=== PATIENT | female | born 1950 | race African-American/Black ===

== ENCOUNTER 2022-09-07 13:36 | Inpatient (IN) | payer OTHER, MEDICAID ==
[~2022-09-07] VITALS: Ht 167.6 cm; Wt 108.2 kg
[2022-09-07 14:20] LABS: Basophils # (auto) 0.1 10 ^3/uL (0-0.2); Basophils % (auto) 0.7 % (0.0-2.0); Eosinophils # (auto) 0 10 ^3/uL (0-0.8); Hematocrit 43.6 % (36.0-46.0); Lymphocytes # (auto) 1.5 10 ^3/uL (0.4-5.4); Lymphocytes % (auto) 20.1 % (10.0-50.0); Mean Corpuscular Hemoglobin 29.1 pg (28.0-32.0); Mean Corpuscular Hgb Conc. 34.4 g/dL (32.0-36.0); Mean Corpuscular Volume 84.5 fL (80.0-100.0); Monocytes # (auto) 0.2 10 ^3/uL (0-1.3); Monocytes % (auto) 2.9 % (0.0-12.0); Neutrophils # (auto) 5.8 10 ^3/uL (1.6-8.6); Neutrophils % (auto) 76.3 % (37.0-80.0); Nucleated Red Blood Cells % 0.3 %; Red Blood Cells 5.16 10^6/uL (4.0-5.20); Red Cell Distribution Width 16.4 % (11.8-14.3); White Blood Cell 7.7 10^3/uL (4.4-10.8)
[2022-09-07 14:36] LABS: Albumin 3.7 g/dL (3.4-5.0); Magnesium 2.4 mg/dL (1.6-2.6); Potassium 3.8 mmol/L (3.5-5.1)
[2022-09-07 14:41] LABS: BUN/Creatinine Ratio 19.3 (10.0-20.0); Bilirubin, Total 1.2 mg/dL (0.2-1.0); INR 1.06 (0.9-1.15); Partial Thromboplastin Time 28.8 sec (24.6-33.4); Total Protein 8.2 g/dL (6.4-8.2)
[2022-09-07 15:22] LABS: Lactic Acid w/Reflex 2.7 mmol/L (0.4-2.0)
[2022-09-07] MEDS ORDERED: PIPERACILLIN-TAZOB 3.375GM 100 ML IV ONE (16:30)
[2022-09-07] MEDS ORDERED: SODIUM CHLORIDE 0.9% 1,000 ML IV ONE (17:15)
[2022-09-07] MEDS ORDERED: ASPirin 325 MG TAB PO ONE (17:15)
[2022-09-07] MEDS ORDERED: DEXTROSE (50%) 50ML SYRG IV PRN (17:15)
[2022-09-07 17:29] LABS: Cholesterol 123 mg/dL (< 200); Triglycerides 64 mg/dL (< 150)
[2022-09-07] MEDS ORDERED: NITROGLYCERIN 0.4 MG SL TAB SL PRN (17:30)
[2022-09-07] MEDS ORDERED: ACETAMINOPHEN 325 MG TAB PO PRN (17:30)
[2022-09-07] MEDS ORDERED: MORPHINE SULFATE INJ 2 MG/ml SYRG IV PRN (17:30)
[2022-09-07 17:32] LABS: HDL Cholesterol 41 mg/dL (40-59); LDL Cholesterol 82 mg/dL (< 100)
[2022-09-07] MEDS ORDERED: INSUINJ37 SC (17:34)
[2022-09-07] MEDS ORDERED: FLUT115A PO (17:34)
[2022-09-07] MEDS ORDERED: METH4PAK3 PO (17:34)
[2022-09-07] MEDS ORDERED: PREG300C49 PO (17:34)
[2022-09-07] MEDS ORDERED: ALBU108A5 INH (17:34)
[2022-09-07] MEDS ORDERED: AZIT500T66 PO (17:34)
[2022-09-07] MEDS ORDERED: DULO60CA (17:34)
[2022-09-07] MEDS ORDERED: ALBUTEROL SULF 2.5 MG/0.5ML(0.5%) NEB SOLN NEB PRN (17:45)
[2022-09-07] MEDS: IPRATROPIUM BROM 0.5 MG/2.5ML INH SOL NEB SCH ×2 (18:03→22:02)
[2022-09-07] MEDS: ALBUTEROL SULF 2.5 MG/0.5ML(0.5%) NEB SOLN NEB SCH ×2 (18:03→22:02)
[2022-09-07] MEDS ORDERED: HYDROcodone-ACET 10/325MG TAB PO ONE (19:45)
[2022-09-07 19:51] VITALS: BP 123/73
[2022-09-07] MEDS: ACCU-CHEK COMFORT CURVE STRIP VI SCH (22:00)
[2022-09-07] MEDS: PREGABALIN CAPSULE 75 MG CAP PO SCH (22:00)
[2022-09-07 22:09] LABS: Lactic Acid w/Reflex 3.4 mmol/L (0.4-2.0)
[2022-09-07] MEDS: InsuLIN REG 1unit/0.01ml Soln (100units/ml) SC SCH (23:46)
[2022-09-08] MEDS: PIPERACILLIN-TAZOB 3.375GM 100 ML IV SCH ×4 (00:03→23:51)
[2022-09-08] MEDS ORDERED: HYDROcodone-ACET 10/325MG TAB PO ONE (01:30)
[2022-09-08] MEDS: ALBUTEROL SULF 2.5 MG/0.5ML(0.5%) NEB SOLN NEB SCH ×6 (01:41→22:00)
[2022-09-08] MEDS: IPRATROPIUM BROM 0.5 MG/2.5ML INH SOL NEB SCH ×6 (01:41→22:00)
[2022-09-08 06:48] LABS: Basophils # (auto) 0 10 ^3/uL (0-0.2); Basophils % (auto) 0.3 % (0.0-2.0); Eosinophils # (auto) 0 10 ^3/uL (0-0.8); Eosinophils % (auto) 0.5 % (0.0-7.0); Hematocrit 44.5 % (36.0-46.0); Hemoglobin 14.3 g/dL (12.2-16.2); Lymphocytes # (auto) 2.5 10 ^3/uL (0.4-5.4); Lymphocytes % (auto) 25.6 % (10.0-50.0); Mean Corpuscular Hemoglobin 28.3 pg (28.0-32.0); Mean Corpuscular Hgb Conc. 32.2 g/dL (32.0-36.0); Mean Corpuscular Volume 88.1 fL (80.0-100.0); Monocytes # (auto) 0.9 10 ^3/uL (0-1.3); Monocytes % (auto) 9.7 % (0.0-12.0); Neutrophils # (auto) 6.2 10 ^3/uL (1.6-8.6); Neutrophils % (auto) 63.9 % (37.0-80.0); Nucleated Red Blood Cells % 0.2 %; Red Blood Cells 5.05 10^6/uL (4.0-5.20); Red Cell Distribution Width 16.6 % (11.8-14.3); White Blood Cell 9.7 10^3/uL (4.4-10.8)
[2022-09-08 07:12] LABS: Potassium 3.8 mmol/L (3.5-5.1)
[2022-09-08] MEDS: ACCU-CHEK COMFORT CURVE STRIP VI SCH ×4 (07:13→22:56)
[2022-09-08] MEDS: InsuLIN REG 1unit/0.01ml Soln (100units/ml) SC SCH ×3 (07:14→19:12)
[2022-09-08 07:20] LABS: Albumin 3.6 g/dL (3.4-5.0); BUN/Creatinine Ratio 18.1 (10.0-20.0); Bilirubin, Total 1.1 mg/dL (0.2-1.0); Calcium 8.6 mg/dL (8.5-10.1); Total Protein 7.2 g/dL (6.4-8.2)
[2022-09-08] MEDS: HYDROcodone-ACET 5/325MG TAB PO PRN ×3 (11:08→23:50)
[2022-09-08] MEDS: PREGABALIN CAPSULE 75 MG CAP PO SCH (11:09)
[2022-09-08] MEDS: ENOXAPARIN SOD 40 MG/0.4 ML SYRINGE SC SCH (11:09)
[2022-09-08] MEDS: ASPirin 81 mg TAB PO SCH (11:09)
[2022-09-09] MEDS: PREGABALIN CAPSULE 75 MG CAP PO SCH ×3 (00:18→21:27)
[2022-09-09] MEDS: InsuLIN REG 1unit/0.01ml Soln (100units/ml) SC SCH ×5 (00:19→23:04)
[2022-09-09] MEDS: IPRATROPIUM BROM 0.5 MG/2.5ML INH SOL NEB SCH ×6 (02:40→22:05)
[2022-09-09] MEDS: ALBUTEROL SULF 2.5 MG/0.5ML(0.5%) NEB SOLN NEB SCH ×6 (02:40→22:05)
[2022-09-09 06:23] LABS: Urine Bacteria NONE SEEN /hpf (None Seen); Urine Blood Negative /uL (Negative); Urine Specific Gravity 1.026 (1.001-1.035); Urine WBC 2 /hpf (0 - 5)
[2022-09-09] MEDS: PIPERACILLIN-TAZOB 3.375GM 100 ML IV SCH ×3 (06:25→21:29)
[2022-09-09] MEDS: ACCU-CHEK COMFORT CURVE STRIP VI SCH ×4 (07:00→22:00)
[2022-09-09] MEDS: ENOXAPARIN SOD 40 MG/0.4 ML SYRINGE SC SCH (10:00)
[2022-09-09 10:56] VITALS: BP 166/96
[2022-09-09] MEDS: ASPirin 81 mg TAB PO SCH (11:24)
[2022-09-09 12:00] VITALS: BP 171/87
[2022-09-09] MEDS ORDERED: cloNIDine HCL 0.1 MG TAB PO PRN (12:30)
[2022-09-09] MEDS: HYDROcodone-ACET 5/325MG TAB PO PRN ×2 (12:59→21:34)
[2022-09-09] MEDS ORDERED: LACTULOSE 20Gm/30ML SOLN PO ONE (13:15)
[2022-09-09 15:53] VITALS: BP 127/84
[2022-09-09 16:36] VITALS: BP 112/62
[2022-09-09] MEDS: hydrALAZINE HCL 25 MG TAB PO SCH (21:28)
[2022-09-09] MEDS: METOPROLOL TARTRATE 50 MG TAB PO SCH (21:28)
[2022-09-09 21:56] VITALS: BP 96/55
[2022-09-10] VITALS (7 sets, daily range): BP systolic 123–140; BP diastolic 60–79
[2022-09-10] MEDS: ALBUTEROL SULF 2.5 MG/0.5ML(0.5%) NEB SOLN NEB SCH ×5 (02:05→19:06)
[2022-09-10] MEDS: IPRATROPIUM BROM 0.5 MG/2.5ML INH SOL NEB SCH ×5 (02:05→19:06)
[2022-09-10] MEDS: PIPERACILLIN-TAZOB 3.375GM 100 ML IV SCH ×2 (06:09→14:19)
[2022-09-10] MEDS: hydrALAZINE HCL 25 MG TAB PO SCH ×2 (06:12→14:20)
[2022-09-10] MEDS: InsuLIN REG 1unit/0.01ml Soln (100units/ml) SC SCH ×3 (06:14→17:23)
[2022-09-10] MEDS: ACCU-CHEK COMFORT CURVE STRIP VI SCH ×3 (06:14→17:19)
[2022-09-10] MEDS: HYDROcodone-ACET 5/325MG TAB PO PRN ×2 (06:30→14:23)
[2022-09-10] MEDS: ENOXAPARIN SOD 40 MG/0.4 ML SYRINGE SC SCH (08:59)
[2022-09-10] MEDS: PREGABALIN CAPSULE 75 MG CAP PO SCH (09:00)
[2022-09-10] MEDS: METOPROLOL TARTRATE 50 MG TAB PO SCH (09:01)
[2022-09-10] MEDS: ASPirin 81 mg TAB PO SCH (09:01)
[2022-09-10] MEDS ORDERED: LEVO500T31 PO (10:57)
[2022-09-10] MEDS ORDERED: METO-158 PO (10:57)
[2022-09-10] MEDS ORDERED: HYDR50TA15 PO (10:57)
== END 2022-09-10 21:25 | disposition home or self-care (01) | DRG 190 ==
LOC: EDBD 13:36 → ER 13:36 → TELE 17:29 → TELE-WESTW 09-09 10:29 → WEST WING 09-09 20:50
PROVIDERS: ADMIT Nurse Practitioner Family; ATTEND Family Medicine
DX: J44.1 Chronic obstructive pulmonary disease with (acute) exacerbation (principal); J18.9 Pneumonia, unspecified organism; E87.20 Acidosis, unspecified; J96.11 Chronic respiratory failure with hypoxia; Z20.822 Contact with and (suspected) exposure to COVID-19; E11.40 Type 2 diabetes mellitus with diabetic neuropathy, unspecified; R07.9 Chest pain, unspecified; J44.0 Chronic obstructive pulmonary disease with (acute) lower respiratory infection; E66.01 Morbid (severe) obesity due to excess calories; F41.9 Anxiety disorder, unspecified; Z68.38 Body mass index [BMI] 38.0-38.9, adult; Z87.01 Personal history of pneumonia (recurrent); Z79.82 Long term (current) use of aspirin
CPT/HCPCS: 36415; 71045; 78582; 80053; 80061; 81001; 82962; 83036; 83605; 83735; 83880; 84443; 84484; 85025; 85379; 85610; 85730; 87040; 87426; 87804; 93005; 93306; 94640; 96361; 96365; G0378; J1815; J2543